=== PATIENT | male | born 2005 ===

== ENCOUNTER → 2025-03-16 11:30 | Outpatient (BNV) | payer OTHER, SELFPAY | PROVIDERS: Visit Provider Internal Medicine Cardiovascular Disease | DX: I49.1 Atrial premature depolarization (principal); R00.2 Palpitations | CPT/HCPCS: 93248 ==

== ENCOUNTER → 2025-03-16 11:30 | Outpatient (REF) | payer OTHER, SELFPAY ==
--- NOTE | 2025-03-16 | HM_ITS ---
Conclusion: 1. Patient was monitored for total period of 15 days 2. Baseline was normal sinus rhythm with average heart rate of 94 beats per minute 3. No significant pauses noted 4. Frequent sinus tachycardia noted with 43.5% of time heart rate about 100 beats per minute 5. Very rare PACs noted with total burden of less than 0.01% with 1 7 beat run of SVE at 148 beats per minute 6. Patient marked the counter 3 times with some of the symptoms reported as fast heart rate or shortness of breath correlating with sinus rhythm MTDD
== END ==
LOC: HO.CARD 11:30
PROVIDERS: Visit Provider Nurse Practitioner
DX: R00.2 Palpitations (principal)
CPT/HCPCS: 93246